=== PATIENT | female | born 1960 | race Caucasian/White ===

== ENCOUNTER 2019-07-27 15:10 | Day surgery (SDC) | payer BC ==
[2019-07-27] VITALS (8 sets, daily range): BP systolic 119–164; BP diastolic 73–96
[~2019-07-27] VITALS: Ht 162.6 cm; Wt 63.9 kg
[2019-07-27] MEDS ORDERED: NO HOME MEDS (15:44)
[2019-07-27 15:49] LABS: BASOPHILS % (AUTO) 0.5 % (0-1); EOSINOPHILS % (AUTO) 0.1 % (0-6); LYMPHOCYTES # (AUTO) 1.5 X10'3 (1.1-4.8); LYMPHOCYTES % (AUTO) 17.6 % (21-51); MEAN CORPUSCULAR HEMOGLOBIN 29.9 PG (27.0-31.0); MEAN CORPUSCULAR HGB CONC 33.7 g/dL (33.0-36.5); MEAN CORPUSCULAR VOLUME 88.7 FL (78-98); MEAN PLATELET VOLUME 9.5 FL (7.4-10.4); MONOCYTES # (AUTO) 0.7 X10'3 (0-0.9); MONOCYTES % (AUTO) 8.1 % (2-12); NEUTROPHILS # (AUTO) 6.4 X10'3 (1.8-7.7); NEUTROPHILS % (AUTO) 73.7 % (42-75); PRE OP HEMATOCRIT 41.3 % (35.0-45.0); PRE OP HEMOGLOBIN 13.9 g/dL (12.0-16.0); PRE OP PLATELET COUNT 208 X10'3 (140-440); RED BLOOD COUNT 4.65 X10'6 (4.20-5.60); RED CELL DISTRIBUTION WIDTH 12.7 % (11.5-14.5)
[2019-07-27] MEDS ORDERED: BUPIVAcaine/PF 2.5 mg/ml (0.25%) 30ml vial ONE (15:51)
[2019-07-27] MEDS ORDERED: ringers solution, lacted 1,000 ML IV SCH (15:59)
[2019-07-27] MEDS ORDERED: ondansetron/PF 4mg/2ml inj IV PRN (16:00)
[2019-07-27] MEDS ORDERED: morphine 2 MG/ML inj. syringe IV PRN (16:00)
[2019-07-27] MEDS ORDERED: morphine 4 MG/ML inj SYRINge IV PRN (16:00)
[2019-07-27] MEDS ORDERED: proCHLORperazine 10 MG/2 ml inj IV PRN (16:00)
[2019-07-27] MEDS ORDERED: meperidine/PF 25mg/ml syringe IV PRN ×3 (16:00)
[2019-07-27] MEDS ORDERED: ceFOXitin 2 GM ADDVANTGE BAG 50 ML IV ONE (16:06)
[2019-07-27] MEDS ORDERED: sevoflurane 250ml liquid IH ONE (16:13)
[2019-07-27] MEDS ORDERED: fentaNYL/PF 50MCG/1 ML 2ML syringe ONE (16:17)
[2019-07-27] MEDS ORDERED: propofol inj 20 ML IV ONE (16:17)
[2019-07-27] MEDS ORDERED: midazolam 2 mg/2 ml injection ONE (16:17)
--- NOTE | 2019-07-27 16:58 | NUR ---
Received pt admitted at [address] Pastrana with Dx acute App. Pre-op check list completed. Pt was transferred to OR for surgery.
[2019-07-27] MEDS ORDERED: dexamethasone sod phosphate 4mg/ml inj. ONE (17:00)
[2019-07-27] MEDS ORDERED: rocuronium 10mg/ml inj IV ONE (17:00)
[2019-07-27] MEDS ORDERED: ondansetron/PF 4mg/2ml inj ONE (17:00)
[2019-07-27] MEDS ORDERED: acetaminophen 1,000mg/100ml IV 100 ML IV ONE (17:00)
[2019-07-27] MEDS ORDERED: sugammadex 200mg/2ml injection IV ONE (17:04)
--- NOTE | 2019-07-27 17:18 | NUR ---
ARRIVED IN PACU VIA BED FROM OR. REPORT RECEIVED. VS STABLE. ONLY C/O MILD PAIN, DOESNT WANT ANY MEDS PRESENTLY
--- NOTE | 2019-07-27 17:50 | NUR ---
CONFORTABLE. TOLERATING ICE CHIPS. REPORT CALLED TO FLOOR, QUESTIONS ANSWERED
--- NOTE | 2019-07-27 18:16 | NUR ---
Pt back to floor from Recovery room in stable conditions. Received report from SUJIT Baker. Pt resting comfortably, A&O x4. Planning to be D/C home this evening. Report given to Kaushik BECKETT.
== END 2019-07-27 22:50 | disposition home or self-care (01) ==
LOC: SSTAY O 15:10 → SUR 3N 15:11 → SSTAY O 22:50
PROVIDERS: ATTEND Surgery
DX: K35.891 Other acute appendicitis without perforation, with gangrene (principal); Z79.899 Other long term (current) drug therapy
CPT/HCPCS: 36415; 44950; 82948; 85025; 93005; C9399; J0131; J0694; J1100; J2250; J2405; J2704; J3010; J3490; J7120; A4618; A7000; G0378